=== PATIENT | female | born 1960 | race Caucasian/White ===

== ENCOUNTER 2020-06-28 09:19 | Emergency (ER) | payer OTHER ==
[~2020-06-28] VITALS: Ht 167.6 cm; Wt 65.8 kg
--- NOTE | 2020-06-28 09:25 | NUR ---
The patient is [id number], from home, c/o nausea and vomiting after 2nd dose of covid 19 vaccine. The alert and oriented x4. Denies pain. In room air and deneis SOB. Respiration regular and unlabored. The patient is placed in ER bed #6. Warm blanket provided for comfort. Will continue to monitor the patient.
[2020-06-28] MEDS ORDERED: IV NS 0.9% 1,000 ML BAG IV ONE (09:30)
[2020-06-28] MEDS ORDERED: ONDANSETRON HCL/PF 4 MG/2 ML VIAL IVP ONE (09:30)
[2020-06-28] MEDS ORDERED: ONDANSETRON HCL/PF 4 MG/2 ML VIAL ONE (09:45)
[2020-06-28 09:54] LABS: BASOPHILS % (AUTO) 0.3 % (0.0-2.0); EOSINOPHILS % (AUTO) 0.2 % (0.0-6.0); HEMATOCRIT 40 % (33-45); HEMOGLOBIN 13.1 g/dL (11.5-14.8); LYMPHOCYTES # (AUTO) 0.4 /CMM (0.8-4.8); LYMPHOCYTES % (AUTO) 5.3 % (20.0-44.0); MEAN CORPUSCULAR HGB CONC 33 g/dl (31.0-36.0); MEAN CORPUSCULAR VOLUME 92 fL (82-100); MONOCYTES # (AUTO) 0.2 /CMM (0.1-1.30); MONOCYTES % (AUTO) 2.7 % (2.0-12.0); NEUTROPHILS # (AUTO) 7.2 /CMM (1.8-8.9); NEUTROPHILS % (AUTO) 91.5 % (43.0-81.0); PLATELET COUNT (AUTO) 184 /CMM (150-450); RED BLOOD CELL COUNT(AUTO) 4.31 MIL/uL (4.0-5.2); WHITE BLOOD COUNT (AUTO) 7.8 K/uL (4.3-11.0)
[2020-06-28 10:13] LABS: ALANINE AMINOTRANSFERASE 44 U/L (12-78); ALKALINE PHOSPHATASE 91 U/L (46-116); ASPARTATE AMINOTRANSFERASE 34 U/L (15-37); BILIRUBIN,DIRECT 0.2 mg/dL (0.0-0.2); BILIRUBIN,TOTAL 0.8 mg/dL (0.2-1.0); CALCIUM, SERUM 8.6 mg/dL (8.5-10.1); CARBON DIOXIDE 26 mmol/L (21-32); CHLORIDE 104 mmol/L (98-107); CREATININE 0.9 mg/dL (0.6-1.3); GLUCOSE 127 mg/dL (74-106); LIPASE 71 U/L (73-393); POTASSIUM 3.9 mmol/L (3.5-5.1); SODIUM SERUM 138 mmol/L (136-145); TOTAL PROTEIN, SERUM 7.3 g/dL (6.4-8.2); UREA NITROGEN, BLOOD 17 mg/dL (7-18)
[2020-06-28] MEDS ORDERED: ONDA4TAB11 PO (12:04)
--- NOTE | 2020-06-28 12:30 | NUR ---
pt verbalized headache asked for tylenol. md made aware. verbal order to give tylenol 1gm po x 1 dose. noted and carried out
--- NOTE | 2020-06-28 12:36 | NUR ---
Patient discharged to home in stable condition. Written and verbal after care instructions given. Patient verbalizes understanding of instruction.IV removed. Catheter intact and site benign. Pressure and 4x4 applied to site. No bleeding noted. Pt ambulatory with a steady gait
[2020-06-28] MEDS ORDERED: ACETAMINOPHEN ES 500 MG TABLET ONE (12:37)
[2020-06-28 12:50] VITALS: BP 121/73
[2020-06-28] MEDS ORDERED: ACETAMINOPHEN ES 500 MG TABLET PO ONE (13:00)
== END 2020-06-28 12:36 | disposition home or self-care (01) ==
LOC: ER 09:23
DX: T88.1XXA Other complications following immunization, not elsewhere classified, initial encounter (principal); R11.2 Nausea with vomiting, unspecified; R94.31 Abnormal electrocardiogram [ECG] [EKG]
CPT/HCPCS: 36415; 80048; 80076; 83690; 84484; 85025; 93005; 96361; 96374; 99284; J2405; J7030

== ENCOUNTER 2023-01-14 03:16 | Emergency (ER) | payer OTHER ==
[~2023-01-14] VITALS: Ht 160 cm; Wt 57.2 kg
[~2023-01-14 03:16] MED LIST: ONDA4TAB11 PO
[2023-01-14] MEDS ORDERED: ASPIRIN 81 MG TAB.CHEW PO ONE (04:30)
[2023-01-14] MEDS ORDERED: NITROGLYCERIN 0.4 MG/TAB BOTTLE SL ONE (04:30)
[2023-01-14 04:32] VITALS: BP 135/74; TEMP 98.1; O2SAT 99
== END 2023-01-14 04:36 | disposition home or self-care (01) ==
LOC: ER 03:20
DX: R07.89 Other chest pain (principal); Z98.890 Other specified postprocedural states; Z79.899 Other long term (current) drug therapy; Z88.1 Allergy status to other antibiotic agents